=== PATIENT | female | born 1995 | race Caucasian/White ===

== ENCOUNTER 2016-09-12 00:25 | Emergency (ER) | payer SELFPAY ==
[~2016-09-12] VITALS: Ht 154.9 cm; Wt 47.5 kg
[2016-09-12 00:30] VITALS: Ht 154.9 cm; Wt 47.5 kg
== END 2016-09-12 01:45 | disposition left against medical advice (07) ==
LOC: FTE 00:25
DX: Z53.21 Procedure and treatment not carried out due to patient leaving prior to being seen by health care provider (principal)

== ENCOUNTER 2017-01-26 09:34 | Inpatient (IN) | payer OTHER ==
[~2017-01-26] VITALS: Ht 154.9 cm; Wt 58.8 kg
[2017-01-26 09:47] VITALS: Ht 154.9 cm; Wt 58.8 kg
[2017-01-26] MEDS ORDERED: FER325 PO (09:47)
[2017-01-26 09:48] VITALS: BP 86/53; PULSE 101; RESP 18
[2017-01-26] MEDS ORDERED: GUAIFENESIN/DM 5ML CUP PO ONE (10:00)
[2017-01-26 10:27] LABS: BASOPHILS % 0.5 % (0.0-2.0); EOSINOPHILS # 0.1 10^3/ul (0.0-0.5); EOSINOPHILS % 1.1 % (0.0-7.0); HEMATOCRIT 30.9 % (37.0-47.0); HEMOGLOBIN 10.5 g/dl (12.0-16.0); LYMPHOCYTES # 1.7 10^3/ul (0.8-2.9); MEAN CORPUSCULAR HEMOGLOBIN 31.3 pg (29.0-33.0); MEAN CORPUSCULAR VOLUME 92.2 fl (82.0-101.0); MEAN PLATELET VOLUME 10.1 fl (7.4-10.4); MONOCYTE # 0.6 10^3/ul (0.3-0.9); MONOCYTES % 7.7 % (0.0-11.0); NEUTROPHIL # 5.1 10^3/ul (1.6-7.5); NEUTROPHILS % 67.3 % (39.0-77.0); PLATELET COUNT 238 10^3/UL (140-415); RED BLOOD COUNT 3.35 10^6/ul (4.20-5.40); RED CELL DISTRIBUTION WIDTH 12.4 % (11.5-14.5); WHITE BLOOD COUNT 7.6 10^3/ul (4.8-10.8)
[2017-01-26] MEDS ORDERED: LACTATED RINGER'S 1,000 ML IV ONE (10:30)
--- NOTE | 2017-01-26 10:42 | RADRPT ---
PROCEDURE: US OB AND ULTRASOUND CERVIX. CLINICAL INDICATION: Size and dates , labor TECHNIQUE: Multiple sonographic images of the pelvis and gravid uterus were obtained. The images were reviewed on a PACS workstation. Transvaginal images of the cervix were also obtained. COMPARISON: No prior studies are available for comparison. FINDINGS: The cervix has a length of 4.5 cm. There is a single viable intrauterine gestation. Cardiac activity is present with 134 beats per min mariama. There is a vertex presentation. The placenta is anterior. There is no evidence for an abruption or placenta previa. Measurements were made in order to determine age. The results are as follows: BPD =7.7 cm HC =28.9 cm AC =27.9 cm FL =6.2 cm Estimated gestational age of approximately 31 weeks and 5 days based on ultrasound measurements. Clinical age: 32 weeks and 6 days. The estimated date of delivery is 03/25/17, based on ultrasound measurements. The EFW = 1849 g, 14.8%, based on LMP age. RPTAT: AA IMPRESSION: Single viable intrauterine gestation of approximately 31 weeks and 5 days based on ultrasound measu rements. .Leo Jennings MD, Date Time Electronically viewed and signed by .Leo Jennings MD, MD on 01/26/2017 10:42 .S/
[2017-01-26 10:52] LABS: UR BILIRUBIN (Dip) NEGATIVE (NEGATIVE); UR CLARITY SLIGHTLY CLOUDY (CLEAR); UR COLOR YELLOW (YELLOW); UR GLUCOSE (Dip) NEGATIVE (NEGATIVE); UR KETONES (Dip) NEGATIVE (NEGATIVE); UR TOTAL PROTEIN (Dip) NEGATIVE (NEGATIVE)
[2017-01-26 10:53] LABS: UR BLOOD (Dip) NEGATIVE (NEGATIVE); UR NITRITE (Dip) NEGATIVE (NEGATIVE); UR UROBILINOGEN (Dip) NEGATIVE (NEGATIVE)
[2017-01-26 10:54] LABS: ADD UMIC YES; UR LEUKOCYTE ESTERASE (Dip) 3+ Leu/ul (NEGATIVE)
[2017-01-26 10:55] LABS: UR BACTERIA FEW /HPF (NONE SEEN); UR SQUAMOUS EPITHELIAL CELL FEW /HPF (FEW)
[2017-01-26] MEDS ORDERED: CEFTRIAXONE 2 GM/50 ML (PMX) 50 ML IVPB SCH (11:30)
[2017-01-26] MEDS ORDERED: TERBUTALINE 1 MG/ML INJ SC ONE (11:30)
[2017-01-26] MEDS ORDERED: CEFTRIAXONE 2 GM/50 ML (PMX) 50 ML IVPB ONE (11:30)
[2017-01-26] MEDS: LACTATED RINGER'S 1,000 ML IV SCH ×2 (11:47→17:36)
--- NOTE | 2017-01-26 11:55 | TRIAGE ---
OB Triage Datetime Report Generated by CPN: 01/26/2017 11:55 Datetime: 01/26/2017 11:30 Stage of : OB Triage Maternal Assessment Level of Consciousness: Fully Conscious Labor Evaluation Frequency: 1-3 Monitor Mode: External Duration (sec)2399: 30-60 Quality: Mild Resting Tone [place]: Relaxed Heart Rate FHR Baseline Rate: 130 Monitor Mode: External US Variability: Moderate 6-25 bpm Accelerations: 15X15 Decelerations: None Category: Category I Pain Assessment Pain Scale: 8 Pain Presence: Constant Pain Type: Ache Pain Location: Back Pain Goal: 3 Pain Relief Measures: Comfort Measures Vaginal Exam Membrane Status: Intact Vaginal Bleeding: None Datetime: 01/26/2017 10:22 Stage of : OB Triage Maternal Assessment Level of Consciousness: Fully Conscious Labor Evaluation Frequency: 1-3 Monitor Mode: External Duration (sec)2399: 30-60 Quality: Mild Resting Tone [place]: Relaxed Heart Rate FHR Baseline Rate: 130 Monitor Mode: External US Variability: Moderate 6-25 bpm Accelerations: 15X15 Decelerations: None Category: Category I Pain Assessment Pain Scale: 8 Pain Presence: Constant Pain Type: Ache Pain Location: Back Pain Goal: 3 Pain Relief Measures: Comfort Measures Vaginal Exam Membrane Status: Intact Vaginal Bleeding: None Datetime: 01/26/2017 09:45 Assessment Type: Triage Maternal Assessment Level of Consciousness: Fully Conscious DTR's/Clonus: DTRs 2+; No Clonus Headache: Denies Blurred Vision: No Respiratory Effort: Unlabored; Regular Rhythm; Equal Expansion Breath Sounds, Left: Clear and Equal Breath Sounds, Right: Clear and Equal Nausea/Vomiting: Denies RUQ Epigastric Pain: Denies Lower Extremities Edema: None Degree: None Upper Extremities Edema: None Degree: None Facial Edema: None Fall Risk Assessment History of Falling: (0) No Secondary Diagnosis: (0) No Ambulatory Aid: (0) Bedrest/Nurse Assist IV Therapy: (0) No Gait: (0) Normal/Bedrest/Immobile Mental Status: (0) Oriented to Own Ability Fall Score: 0 Fall Risk Score Definition: No Risk: No action required Datetime: 01/26/2017 09:44 Time of Arrival: 01/26/2017 09:25 EGA: 32.6 Arrived By: Ambulatory Arrived From: Home Chief Complaint: PT HERE C/O COUGH AND RIGHT SIDED BACK PAIN Movement: Present Contractions: Denies/Absent Rupture of Membranes: Denies Vaginal Bleeding: None Vaginal Discharge: Denies Recent Sexual Intercouse: Yes Abdominal Trauma: Not Applicable Patient Complaints: Back Pain Time Provider Notified: 01/26/2017 09:40 Provider Notified: GAYLE Initial Plan: ROBITUSSIN, EFW, CVL, CBC, UA, LR Datetime: 01/26/2017 09:38 Monitor Mode: External Monitor Mode: External US
[2017-01-26] MEDS ORDERED: GUAIFENESIN/DM 5ML CUP PO PRN (12:00)
--- NOTE | 2017-01-26 16:10 | HP ---
Date/Time of Note Date/Time of Note DATE: 01/26/17 TIME: 16:04 OB - History Hx of Present Free Text/Dictation January 26, 2017 Chief Complaint: Right flank pain, cough worsening of right flank pain with cough, : 1 Para: 0 Spontaneous : 0 Therapeutic : 0 Care: Other (Records are not available. Patient had care with nonstaff OB attending) Other Concerns: 21-year-old with IUP at 32 weeks and 6 days with care with nonstaff OB attending, presented with complaint of cough for the last 2 weeks as well as right flank pain. Patient reports that had subjective fever that currently resolved. Denies any flame. Reports coughing makes her right flank pain worse. Denies any leaking of fluid, vaginal bleeding or decreased movement She denies any complications during her Course Past Family/Social History * Past Medical, Surgical, Family and Obstetric Histories reviewed from chart. OB Admission Exam Vital Signs Vital Signs Vital Signs Date Time Temp Pulse Resp B/P Pulse Ox O2 Delivery O2 Flow Rate FiO2 01/26/17 09:48 98.3 101 18 86/53 97 Room Air Physical Exam HEENT: WNL Heart: Rhythm Normal Lungs: Clear Abdomen: WNL (CVA tenderness in the right side noted) Extremities: Normal Cervical Dilatation: other (Cervical length more than 3 cm. Pelvic exam deferred.) Membranes: Intact Heart Rate: 120's Accelerations: Accelerations Present Decelerations: No Decelerations Contractions on Admission: < 5 Minutes Apart (Irritability with contractions every 4-6 minutes noted when presented spaced out with hydration, and a dose of terbutaline) Intensity: Mild Last 72 hours Lab Results CBC & BMP 01/26/17 09:55 OB Assessment/Plan Other Assessment: IUP at 32 weeks and 6 days Right flank pain,episode of subjective fever, urine analysis consistent with UTI. Clinical picture consistent with pyelonephritis False labor contraction due to UTI Cervix closed and long and ultrasound Irritability contraction improved with hydration Patient will be admitted for IV antibiotics A dose of Rocephin was a started in triage Plan of care discussed with the patient continue IV antibiotics. For 24-48 hours until clinical improvement then will be continued on p.o. antibiotics to complete a course of 2 weeks and then should be on prophylactic treatment for the rest of the Patient was admitted to antepartum service Continue IV fluids Urine was sent for culture and sensitivity Cough likely related to recent episode of cold Lung exam benign and clear Robitussin 3 times daily as needed AMARIS ARAUJO MD Jan 26, 2017 16:10
[2017-01-27] MEDS: SOD CHLORIDE 0.9% 1,000 ML IV SCH ×2 (00:45→09:13)
[2017-01-27] MEDS ORDERED: CEFTRIAXONE 2 GM/50 ML (PMX) 50 ML IVPB SCH (12:00)
--- NOTE | 2017-01-27 15:12 | DS ---
Date/Time of Note Date/Time of Note DATE: 01/27/17 TIME: 15:05 Discharge Summary Admission/Discharge Info Admit Date/Time January 27, 2017 Hospital visit and discharge summary. This patient is a primigravida at about 23 weeks today who was admitted through the emergency room 2 days of with complaint of cough for the past 2 weeks as well as a right flank pain. She says she had some elevated temperature which currently was resolved She was admitted with a diagnosis of urinary tract infection and was placed on Rocephin 2 g to be given every 24 hours. She received 2 doses of Rocephin. Current Medications Medications (Trade) Dose Ordered Sig/Kaci Route PRN Reason Start Time Stop Time Status Last Admin Dose Admin Guaifenesin/ Dextromethorphan 10 ml 10 ml ONCE ONCE PO 01/26/17 10:00 01/26/17 10:40 DC 01/26/17 10:59 Lactated Ringer's (Lr) 1,000 ml @ 1,000 mls/hr Q1H ONCE IV 01/26/17 10:30 01/26/17 11:27 DC 01/26/17 11:00 Terbutaline Sulfate 0.25 mg 0.25 mg ONCE ONCE SC 01/26/17 11:30 01/26/17 11:31 DC 01/26/17 11:47 Ceftriaxone Sodium 50 ml @ 100 mls/hr ONCE ONCE IVPB 01/26/17 11:30 01/26/17 11:30 DC Ceftriaxone Sodium 50 ml @ 100 mls/hr DAILY IVPB 01/26/17 11:30 01/27/17 09:21 DC 01/26/17 12:40 Lactated Ringer's (Lr) 1,000 ml @ 125 mls/hr Q8H IV 01/26/17 11:22 01/27/17 01:00 DC 01/26/17 17:36 Guaifenesin/ Dextromethorphan 10 ml 10 ml TID PRN PO COUGH 01/26/17 12:00 01/27/17 00:10 Sodium Chloride 1,000 ml @ 125 mls/hr Q8H IV 01/27/17 00:30 01/27/17 09:13 Ceftriaxone Sodium (Rocephin) 50 ml @ 100 mls/hr WITH LUNCH IVPB 01/27/17 12:00 01/27/17 13:05 Today she is doing fairly well, she is afebrile. Abdomen is soft heart tone is normal with good variability and acceleration no deceleration Not much of a flank tenderness With these improvement a prescription given for Macrobid 100 mg to be taken 3 times a day as a continuation of antibiotic treatment. She will be discharged home to be followed in the clinic. And to have a urine culture in 2 weeks. Discharge Date/Time Hospital Course Treatment for urinary tract infection At 33 weeks gestation Home Meds Reported Medications Ferrous Sulfate* (Ferrous Sulfate*) 325 Mg Tabec, 325 MG PO DAILY, TAB 01/26/17 Primary Care Provider Not On Staff Doctor BRYSON AMARO MD Jan 27, 2017 15:12
== END 2017-01-27 17:00 | disposition home or self-care (01) | DRG 781 ==
LOC: OBT 09:34 → L-D 09:37 → OBG 11:30 → OBT 11:56
PROVIDERS: ADMIT Obstetrics & Gynecology Obstetrics; ATTEND Obstetrics & Gynecology Obstetrics
DX: O23.43 Unspecified infection of urinary tract in pregnancy, third trimester (principal); Z3A.33 33 weeks gestation of pregnancy
CPT/HCPCS: 76815; 76817; 81001; 85025; 87086; 96360; 96372; G0463; J3105; J7030; J7120

== ENCOUNTER 2017-03-16 22:16 | Inpatient (IN) | payer OTHER ==
[~2017-03-16] VITALS: Ht 154.9 cm; Wt 61.1 kg
[~2017-03-16 22:16] MED LIST: FER325 PO
[2017-03-16] MEDS ORDERED: CALC600T5 PO (22:31)
[2017-03-16] MEDS ORDERED: PREN1TAB79 PO (22:31)
[2017-03-16 22:32] VITALS: Ht 154.9 cm; Wt 61.1 kg
[2017-03-16 22:33] VITALS: BP 145/77; PULSE 83; RESP 20
[2017-03-17] MEDS ORDERED: MISOPROSTOL 200 MCG TAB PR PRN ×2 (00:30→21:30)
[2017-03-17] MEDS ORDERED: CARBOPROST 250 MCG INJ IM PRN ×2 (00:30→21:30)
[2017-03-17] MEDS ORDERED: IBUPROFEN 600 MG TAB PO PRN (00:30)
[2017-03-17] MEDS ORDERED: LACTATED RINGER'S 1,000 ML IV PRN (00:30)
[2017-03-17] MEDS ORDERED: METHYLERGONOVINE 0.2 MG INJ IM PRN ×2 (00:30→21:30)
[2017-03-17] MEDS ORDERED: OXYTOCIN 30 UNITS/LR 500 ML IV SCH ×4 (00:30→21:18)
[2017-03-17] MEDS ORDERED: OXYTOCIN 30 UNITS/LR 500 ML IV PRN ×2 (00:30→21:30)
[2017-03-17] MEDS ORDERED: LIDOCAINE 1% (MPF) 30 ML INJ INJ PRN (00:30)
[2017-03-17] MEDS ORDERED: BUTORPHANOL 2 MG INJ IV PRN (00:30)
--- NOTE | 2017-03-17 01:11 | HP ---
Date/Time of Note Date/Time of Note DATE: 03/17/17 TIME: 01:08 OB - History Hx of Present Free Text/Dictation 03/17/2017 Estimated Due Date: Mar 17, 2017 : 1 Para: 0 Spontaneous : 0 Therapeutic : 0 Care: Good Care Ultrasounds: Normal mid trimester US Obstetrical Complications: None Other Concerns: 21-year-old with IUP at 40 weeks with care at outside clinic presented with complaint of contractions and vaginal bleeding. She reports contractions every 5 minutes. She was examined and was 3 cm 80% -2. GBS negative. Patient has CATHIE March 09, 2017 She was told that she had a narrow suprapubic bone and there is a possibility of section. Estimated weight 7 pound and 12 Past Family/Social History * Past Medical, Surgical, Family and Obstetric Histories reviewed from chart. OB Admission Exam Vital Signs Vital Signs Vital Signs Date Time Temp Pulse Resp B/P Pulse Ox O2 Delivery O2 Flow Rate FiO2 03/16/17 22:33 98.1 83 20 145/77 Room Air Physical Exam HEENT: WNL Abdomen: WNL Extremities: Normal Reflexes: Normal Cervical Dilatation: 3cm Effacement: 75% Station: -2 Membranes: Intact Amniotic Fluid: Clear Heart Rate: 120's Accelerations: Accelerations Present Decelerations: No Decelerations Varibility: Moderate Contractions on Admission: < 5 Minutes Apart Intensity: Moderate OB Assessment/Plan Reason for admission: active labor Other Assessment: IUP at 40 weeks Active labor GBS negative Patient desires labor augmentation Also has a narrow suprapubic arc and possibility of section. Discussed regarding trial of labor. Will follow-up labor curve heart tracing category 1 AMARIS ARAUJO MD Mar 17, 2017 01:11
[2017-03-17] MEDS: LACTATED RINGER'S 1,000 ML IV SCH ×3 (02:23→10:32)
[2017-03-17 02:49] LABS: BASOPHILS % 0.4 % (0.0-2.0); EOSINOPHILS # 0.1 10^3/ul (0.0-0.5); EOSINOPHILS % 0.7 % (0.0-7.0); HEMATOCRIT 31.7 % (37.0-47.0); HEMOGLOBIN 10.6 g/dl (12.0-16.0); LYMPHOCYTES # 2.6 10^3/ul (0.8-2.9); LYMPHOCYTES % 36.3 % (15.0-51.0); MEAN CORPUSCULAR HEMOGLOBIN 29.7 pg (29.0-33.0); MEAN CORPUSCULAR HGB CONC 33.4 g/dl (32.0-37.0); MEAN CORPUSCULAR VOLUME 88.8 fl (82.0-101.0); MEAN PLATELET VOLUME 11.5 fl (7.4-10.4); MONOCYTE # 0.6 10^3/ul (0.3-0.9); MONOCYTES % 8.9 % (0.0-11.0); NEUTROPHIL # 3.8 10^3/ul (1.6-7.5); NEUTROPHILS % 53.4 % (39.0-77.0); PLATELET COUNT 157 10^3/UL (140-415); RED BLOOD COUNT 3.57 10^6/ul (4.20-5.40); WHITE BLOOD COUNT 7.2 10^3/ul (4.8-10.8)
[2017-03-17 02:56] LABS: INR 0.8; PROTIME 11.1 Sec (12.2-14.2); PT RATIO 0.9
[2017-03-17 02:57] LABS: PARTIAL THROMBOPLASTIN TIME 28.3 Sec (25.0-35.0)
--- NOTE | 2017-03-17 04:31 | TRIAGE ---
OB Triage Datetime Report Generated by CPN: 03/17/2017 04:30 Datetime: 03/17/2017 04:19 Temperature Route: Oral Pain Assessment Pain Scale: 6 Pain Presence: Intermittent Pain Type: Contraction Pain Location: Abdomen; Back Pain Relief Measures: Comfort Measures Datetime: 03/17/2017 03:00 Labor Evaluation Frequency: 2-4 Monitor Mode: External Duration (sec)2399: 40-60 Quality: Mild Pattern: Normal: <= 5 Contractions in 10 Minutes Resting Tone [place]: Relaxed Interventions: Side to Side Heart Rate FHR Baseline Rate: 125 Monitor Mode: External US FHR Baseline Changes: No Baseline Change Variability: Moderate 6-25 bpm Accelerations: 15X15 Decelerations: None Category: Category I Datetime: 03/17/2017 02:30 Labor Evaluation Frequency: 4-6 Monitor Mode: External Duration (sec)2399: 60-90 Quality: Mild Pattern: Normal: <= 5 Contractions in 10 Minutes Resting Tone [place]: Relaxed Interventions: Side to Side; Sterile Vaginal Exam; Provider Notified Heart Rate FHR Baseline Rate: 120 Monitor Mode: External US FHR Baseline Changes: No Baseline Change Variability: Moderate 6-25 bpm Accelerations: 15X15 Decelerations: Prolonged Category: Category II Comments: refer to time 0202 for prolonged deceleration Datetime: 03/17/2017 02:22 Temperature Route: Oral Pain Assessment Pain Scale: 4 Pain Presence: Intermittent Pain Type: Contraction Pain Location: Abdomen; Back Pain Goal: 5 Pain Relief Measures: Comfort Measures Datetime: 03/17/2017 02:08 Stage of : Labor Vaginal Exam Dilatation (cms): 3.0 Effacement (%): 80 Station: -2 Exam By: MG Membrane Status: Intact Datetime: 03/17/2017 02:02 Interventions: Side to Side Comments: Prolonged deceleration lasting for 4 minutes with vilma at 50. Datetime: 03/17/2017 01:49 Resting Tone [place]: Relaxed Datetime: 03/17/2017 01:45 Labor Evaluation Frequency: 5-5.5 Monitor Mode: External Duration (sec)2399: 100-120 Quality: Mild Pattern: Normal: <= 5 Contractions in 10 Minutes Resting Tone [place]: Relaxed Heart Rate FHR Baseline Rate: 120 Monitor Mode: External US FHR Baseline Changes: No Baseline Change Variability: Moderate 6-25 bpm Accelerations: 10X10 Decelerations: None Category: Category I Comments: Periods of loss of FHR contact d/t pt self-repositioning Datetime: 03/17/2017 01:41 Arrived By: Stretcher Datetime: 03/17/2017 01:30 Assessment Type: Admission Assessment Maternal Assessment Level of Consciousness: Fully Conscious DTR's/Clonus: DTRs 2+; No Clonus Headache: Denies Blurred Vision: No Respiratory Effort: Unlabored; Regular Rhythm; Equal Expansion Breath Sounds, Left: Clear and Equal Breath Sounds, Right: Clear and Equal Nausea/Vomiting: Denies RUQ Epigastric Pain: Denies Lower Extremities Edema: None Degree: None Upper Extremities Edema: None Degree: None Facial Edema: None Fall Risk Assessment History of Falling: (0) No Secondary Diagnosis: (0) No Ambulatory Aid: (0) Bedrest/Nurse Assist IV Therapy: (0) No Gait: (0) Normal/Bedrest/Immobile Mental Status: (0) Oriented to Own Ability Fall Score: 0 Fall Risk Score Definition: No Risk: No action required Datetime: 03/17/2017 01:15 Stage of : Labor Datetime: 03/17/2017 01:00 Stage of : OB Triage Labor Evaluation Frequency: 3-5.5 Monitor Mode: External Duration (sec)2399: 90-180 Quality: Moderate Pattern: Normal: <= 5 Contractions in 10 Minutes Resting Tone [place]: Relaxed Heart Rate FHR Baseline Rate: 120 Monitor Mode: External US FHR Baseline Changes: No Baseline Change Variability: Moderate 6-25 bpm Accelerations: 15X15 Decelerations: Early; Late Category: Category II Datetime: 03/17/2017 00:00 Stage of : OB Triage Labor Evaluation Frequency: 2.5-5 Monitor Mode: External Duration (sec)2399: 90-180 Quality: Moderate Pattern: Normal: <= 5 Contractions in 10 Minutes Resting Tone [place]: Relaxed Heart Rate FHR Baseline Rate: 120 Monitor Mode: External US Variability: Moderate 6-25 bpm Accelerations: 15X15 Decelerations: None Category: Category I Datetime: 03/16/2017 23:00 Stage of : OB Triage Labor Evaluation Frequency: 3-5.5 Monitor Mode: External Duration (sec)2399: 70-180 Quality: Moderate Pattern: Normal: <= 5 Contractions in 10 Minutes Resting Tone [place]: Relaxed Heart Rate FHR Baseline Rate: 125 Monitor Mode: External US Variability: Moderate 6-25 bpm Accelerations: 15X15 Decelerations: None Category: Category I Datetime: 03/16/2017 22:34 Stage of : OB Triage Datetime: 03/16/2017 22:23 Vaginal Exam Dilatation (cms): 3.0 Effacement (%): 80 Station: -2 Exam By: WILI Schofield Membrane Status: Intact Vaginal Bleeding: Small Nitrazine: Negative Cervix, Consistency: Moderate Cervix, Position: Posterior Datetime: 03/16/2017 22:14 Stage of : OB Triage Assessment Type: Triage Maternal Assessment Level of Consciousness: Fully Conscious DTR's/Clonus: DTRs 2+; No Clonus Headache: Denies Blurred Vision: No Respiratory Effort: Unlabored; Regular Rhythm; Equal Expansion Breath Sounds, Left: Clear and Equal Breath Sounds, Right: Clear and Equal Nausea/Vomiting: Denies RUQ Epigastric Pain: Denies Lower Extremities Edema: None Degree: None Upper Extremities Edema: None Degree: None Facial Edema: None Temperature Route: Oral Fall Risk Assessment History of Falling: (0) No Secondary Diagnosis: (0) No Ambulatory Aid: (0) Bedrest/Nurse Assist IV Therapy: (0) No Gait: (0) Normal/Bedrest/Immobile Mental Status: (0) Oriented to Own Ability Fall Score: 0 Fall Risk Score Definition: No Risk: No action required Pain Assessment Pain Scale: 6 Pain Presence: Intermittent Pain Type: Cramping; Contraction Pain Location: Abdomen; Back Pain Relief Measures: Comfort Measures Datetime: 03/16/2017 22:12 Stage of : OB Triage Monitor Mode: External Contraction Comments: [place] applied Heart Rate FHR Baseline Rate: 130 Monitor Mode: External US Comments: EFM applied Datetime: 03/16/2017 22:11 Time of Arrival: 03/16/2017 21:59 EGA: 39.6 Arrived By: Wheelchair Arrived From: Home Chief Complaint: Bleeding with uc's q5mins Movement: Present Contractions: Regular Time Contractions Began: 03/16/2017 19:00 Contractions: q5mins Rupture of Membranes: Unsure Vaginal Bleeding: Moderate Vaginal Discharge: Present Recent Sexual Intercouse: Denies Abdominal Trauma: Not Applicable Patient Complaints: Contractions; Cramping; Back Pain; Other Time Provider Notified: 03/16/2017 22:34 Provider Notified: Initial Plan: EFM x2 Datetime: 01/27/2017 16:35 Labor Evaluation Frequency: 0 Monitor Mode: External Pattern: Normal: <= 5 Contractions in 10 Minutes Resting Tone [place]: Relaxed Heart Rate FHR Baseline Rate: 135 Monitor Mode: External US FHR Baseline Changes: No Baseline Change Variability: Moderate 6-25 bpm Accelerations: 15X15 Decelerations: None Category: Category I Datetime: 01/27/2017 16:00 Labor Evaluation Frequency: IRRIT Monitor Mode: External Duration (sec)2399: 30 Pattern: Normal: <= 5 Contractions in 10 Minutes Resting Tone [place]: Relaxed Contraction Comments: PT DENIES FEELING UCs Heart Rate FHR Baseline Rate: 140 Monitor Mode: External US FHR Baseline Changes: No Baseline Change Variability: Moderate 6-25 bpm Accelerations: 15X15 Decelerations: None Category: Category I Datetime: 01/27/2017 15:00 Labor Evaluation Frequency: 0 Monitor Mode: External Pattern: Normal: <= 5 Contractions in 10 Minutes Resting Tone [place]: Relaxed Heart Rate FHR Baseline Rate: 130 Monitor Mode: External US FHR Baseline Changes: No Baseline Change Variability: Moderate 6-25 bpm Accelerations: 15X15 Decelerations: None Category: Category I Datetime: 01/27/2017 14:00 Labor Evaluation Frequency: X2/HR Monitor Mode: External Duration (sec)2399: 40 Quality: Mild Pattern: Normal: <= 5 Contractions in 10 Minutes Resting Tone [place]: Relaxed Heart Rate FHR Baseline Rate: 130 Monitor Mode: External US FHR Baseline Changes: No Baseline Change Variability: Moderate 6-25 bpm Accelerations: 15X15 Decelerations: None Category: Category I Datetime: 01/27/2017 13:00 Labor Evaluation Frequency: X2/HR +IRRIT Monitor Mode: External Duration (sec)2399: 40 TO 50 Quality: Mild Pattern: Normal: <= 5 Contractions in 10 Minutes Resting Tone [place]: Relaxed Contraction Comments: PT DENIES UCs Heart Rate FHR Baseline Rate: 130 Monitor Mode: External US FHR Baseline Changes: No Baseline Change Variability: Moderate 6-25 bpm Accelerations: 15X15 Decelerations: None Category: Category I Datetime: 01/27/2017 12:59 Temperature Route: Oral Labor Evaluation Frequency: X3/HR +IRRIT Monitor Mode: External Duration (sec)2399: 40 TO 50 Quality: Mild Pattern: Normal: <= 5 Contractions in 10 Minutes Resting Tone [place]: Relaxed Heart Rate FHR Baseline Rate: 130 Monitor Mode: External US FHR Baseline Changes: No Baseline Change Variability: Moderate 6-25 bpm Accelerations: 15X15 Decelerations: None Category: Category I Datetime: 01/27/2017 12:00 Labor Evaluation Frequency: X3/HR +IRRIT Monitor Mode: External Quality: Mild Pattern: Normal: <= 5 Contractions in 10 Minutes Resting Tone [place]: Relaxed Heart Rate FHR Baseline Rate: 130 Monitor Mode: External US FHR Baseline Changes: No Baseline Change Variability: Moderate 6-25 bpm Accelerations: 15X15 Decelerations: None Category: Category I Datetime: 01/27/2017 11:00 Labor Evaluation Frequency: X5/HR +IRRIT Monitor Mode: External Duration (sec)2399: 50 TO 60 Quality: Mild Pattern: Normal: <= 5 Contractions in 10 Minutes Resting Tone [place]: Relaxed Heart Rate FHR Baseline Rate: 130 Monitor Mode: External US FHR Baseline Changes: No Baseline Change Variability: Moderate 6-25 bpm Accelerations: 15X15 Decelerations: None Category: Category I Datetime: 01/27/2017 10:00 Labor Evaluation Frequency: 0 Monitor Mode: External Quality: Mild Pattern: Normal: <= 5 Contractions in 10 Minutes Heart Rate FHR Baseline Rate: 130 Monitor Mode: External US FHR Baseline Changes: No Baseline Change Variability: Moderate 6-25 bpm Accelerations: 15X15 Decelerations: None Category: Category I Datetime: 01/27/2017 09:00 Labor Evaluation Frequency: X5/HR +IRRIT Monitor Mode: External Duration (sec)2399: 50 TO 60 Quality: Mild Pattern: Normal: <= 5 Contractions in 10 Minutes Resting Tone [place]: Relaxed Contraction Comments: PT DENIES FEELING UCs Datetime: 01/27/2017 08:00 Maternal Assessment Level of Consciousness: Fully Conscious DTR's/Clonus: DTRs 2+; No Clonus Headache: Denies Breath Sounds, Left: Clear and Equal Breath Sounds, Right: Clear and Equal Nausea/Vomiting: Denies RUQ Epigastric Pain: Denies Temperature Route: Oral Labor Evaluation Frequency: X7 Monitor Mode: External Duration (sec)2399: 60 TO 70 Quality: Mild Pattern: Normal: <= 5 Contractions in 10 Minutes Resting Tone [place]: Relaxed Contraction Comments: PT DENIES FEELING UCs Datetime: 01/27/2017 07:56 Assessment Type: Ongoing Assessment Blurred Vision: No Respiratory Effort: Unlabored; Regular Rhythm; Equal Expansion Lower Extremities Edema: None Degree: None Upper Extremities Edema: None Degree: None Facial Edema: None Fall Risk Assessment History of Falling: (0) No Secondary Diagnosis: (0) No Ambulatory Aid: (0) Bedrest/Nurse Assist Gait: (0) Normal/Bedrest/Immobile Mental Status: (0) Oriented to Own Ability Datetime: 01/27/2017 05:50 Labor Evaluation Frequency: x2 Monitor Mode: External Duration (sec)2399: 40-50 Quality: Mild Resting Tone [place]: Relaxed Heart Rate FHR Baseline Rate: 140 Monitor Mode: External US Variability: Moderate 6-25 bpm Accelerations: 15X15 Decelerations: None Category: Category I Pain Presence: None/Denies Pain Type: N/A Datetime: 01/27/2017 04:50 Maternal Assessment Level of Consciousness: Fully Conscious Headache: Denies Blurred Vision: No Nausea/Vomiting: Denies RUQ Epigastric Pain: Denies Facial Edema: None Labor Evaluation Frequency: x4 Monitor Mode: External Duration (sec)2399: 40-60 Quality: Mild Resting Tone [place]: Relaxed Heart Rate FHR Baseline Rate: 130 Monitor Mode: External US Variability: Moderate 6-25 bpm Accelerations: 15X15 Decelerations: None Category: Category I Pain Presence: None/Denies Datetime: 01/27/2017 03:50 Labor Evaluation Frequency: OCCASIONAL Monitor Mode: External Duration (sec)2399: 40-50 Quality: Mild Resting Tone [place]: Relaxed Heart Rate FHR Baseline Rate: 135 Monitor Mode: External US Variability: Moderate 6-25 bpm Accelerations: 15X15 Decelerations: None Category: Category I Datetime: 01/27/2017 02:50 Labor Evaluation Frequency: X2 Monitor Mode: Internal Duration (sec)2399: 40-50 Quality: Mild Resting Tone [place]: Relaxed Heart Rate FHR Baseline Rate: 140 Monitor Mode: External US Variability: Moderate 6-25 bpm Accelerations: 15X15 Decelerations: None Category: Category I Pain Presence: None/Denies Datetime: 01/27/2017 01:50 Labor Evaluation Frequency: 0 Monitor Mode: External Quality: Mild Resting Tone [place]: Relaxed Contraction Comments: SOME IRRITABILITY NOTED. Heart Rate FHR Baseline Rate: 135 Monitor Mode: External US Variability: Moderate 6-25 bpm Accelerations: 15X15 Decelerations: None Category: Category I Pain Presence: None/Denies Datetime: 01/27/2017 00:50 Labor Evaluation Frequency: X2 Monitor Mode: External Duration (sec)2399: 40-50 Quality: Mild Resting Tone [place]: Relaxed Heart Rate FHR Baseline Rate: 135 Monitor Mode: External US Variability: Moderate 6-25 bpm Accelerations: 15X15 Decelerations: None Category: Category I Pain Presence: None/Denies Pain Type: N/A Datetime: 01/26/2017 23:50 Labor Evaluation Frequency: x3 Monitor Mode: External Duration (sec)2399: 50-60 Quality: Mild Resting Tone [place]: Relaxed Heart Rate FHR Baseline Rate: 135 Monitor Mode: External US Variability: Moderate 6-25 bpm Accelerations: 15X15 Decelerations: None Category: Category I Pain Presence: None/Denies Datetime: 01/26/2017 22:50 Labor Evaluation Frequency: occasional Monitor Mode: External Duration (sec)2399: 40-50 Quality: Mild Resting Tone [place]: Relaxed Heart Rate FHR Baseline Rate: 140 Monitor Mode: External US Variability: Moderate 6-25 bpm Accelerations: 15X15 Decelerations: None Category: Category I Pain Presence: None/Denies Pain Type: N/A Datetime: 01/26/2017 21:50 Labor Evaluation Frequency: irregular Monitor Mode: External Duration (sec)2399: 40-50 Quality: Mild Resting Tone [place]: Relaxed Heart Rate FHR Baseline Rate: 135 Monitor Mode: External US Variability: Moderate 6-25 bpm Accelerations: 15X15 Decelerations: None Category: Category I Pain Presence: None/Denies Datetime: 01/26/2017 20:50 Labor Evaluation Frequency: IRREGULAR Monitor Mode: External Duration (sec)2399: 40-60 Quality: Mild Resting Tone [place]: Relaxed Heart Rate FHR Baseline Rate: 140 Monitor Mode: External US Variability: Moderate 6-25 bpm Accelerations: 15X15 Decelerations: None Category: Category I Pain Presence: None/Denies Pain Type: N/A Datetime: 01/26/2017 19:50 Labor Evaluation Frequency: IRREGULAR Monitor Mode: External Duration (sec)2399: 40-50 Quality: Mild Resting Tone [place]: Relaxed Contraction Comments: ABDOMEN SOFT TO PALPATE. Heart Rate FHR Baseline Rate: 140 Monitor Mode: External US Variability: Moderate 6-25 bpm Accelerations: 15X15 Decelerations: None Category: Category I Pain Presence: None/Denies Datetime: 01/26/2017 19:42 Stage of : Antepartum Assessment Type: Ongoing Assessment Maternal Assessment Level of Consciousness: Fully Conscious DTR's/Clonus: DTRs 2+; No Clonus Headache: Denies Blurred Vision: No Respiratory Effort: Unlabored; Regular Rhythm; Equal Expansion Breath Sounds, Left: Clear and Equal Breath Sounds, Right: Clear and Equal Nausea/Vomiting: Denies RUQ Epigastric Pain: Denies Lower Extremities Edema: None Degree: None Upper Extremities Edema: None Degree: None Facial Edema: None Temperature Route: Oral Fall Risk Assessment History of Falling: (0) No Secondary Diagnosis: (0) No Ambulatory Aid: (0) Bedrest/Nurse Assist IV Therapy: (0) No Gait: (0) Normal/Bedrest/Immobile Mental Status: (0) Oriented to Own Ability Fall Score: 0 Fall Risk Score Definition: No Risk: No action required Pain Presence: None/Denies Datetime: 01/26/2017 18:51 Labor Evaluation Frequency: OCCASIONAL Monitor Mode: External Duration (sec)2399: 40-60 Quality: Mild Pattern: Normal: <= 5 Contractions in 10 Minutes Resting Tone [place]: Relaxed Heart Rate FHR Baseline Rate: 135 Monitor Mode: External US FHR Baseline Changes: No Baseline Change Variability: Moderate 6-25 bpm Accelerations: 15X15 Decelerations: None Category: Category I Datetime: 01/26/2017 18:00 Labor Evaluation Frequency: IRREGULAR Monitor Mode: External Duration (sec)2399: 40-50 Pattern: Normal: <= 5 Contractions in 10 Minutes Resting Tone [place]: Relaxed Heart Rate FHR Baseline Rate: 135 Monitor Mode: External US FHR Baseline Changes: No Baseline Change Variability: Moderate 6-25 bpm Accelerations: 15X15 Decelerations: None Category: Category I Datetime: 01/26/2017 17:00 Labor Evaluation Frequency: IRREGULAR Monitor Mode: External Duration (sec)2399: 40-50 Pattern: Normal: <= 5 Contractions in 10 Minutes Resting Tone [place]: Relaxed Heart Rate FHR Baseline Rate: 135 Monitor Mode: External US FHR Baseline Changes: No Baseline Change Variability: Moderate 6-25 bpm Accelerations: 15X15 Decelerations: None Category: Category I Datetime: 01/26/2017 16:00 Labor Evaluation Frequency: 3-5 Monitor Mode: External Duration (sec)2399: 60-100 Quality: Mild Pattern: Normal: <= 5 Contractions in 10 Minutes Resting Tone [place]: Relaxed Heart Rate FHR Baseline Rate: 135 Monitor Mode: External US FHR Baseline Changes: No Baseline Change Variability: Moderate 6-25 bpm Accelerations: 15X15 Decelerations: None Category: Category I Datetime: 01/26/2017 15:30 Labor Evaluation Frequency: OCCASIONAL Monitor Mode: External Duration (sec)2399: 40-90 Quality: Mild Pattern: Normal: <= 5 Contractions in 10 Minutes Resting Tone [place]: Relaxed Heart Rate FHR Baseline Rate: 135 Monitor Mode: External US FHR Baseline Changes: No Baseline Change Variability: Moderate 6-25 bpm Accelerations: 15X15 Decelerations: None Category: Category I Datetime: 01/26/2017 14:30 Labor Evaluation Frequency: 1-5 Monitor Mode: External Duration (sec)2399: 40-60 Quality: Mild Pattern: Normal: <= 5 Contractions in 10 Minutes Resting Tone [place]: Relaxed Heart Rate FHR Baseline Rate: 135 Monitor Mode: External US FHR Baseline Changes: No Baseline Change Variability: Moderate 6-25 bpm Accelerations: 15X15 Decelerations: None Category: Category I Datetime: 01/26/2017 13:30 Labor Evaluation Frequency: 1-3 Monitor Mode: External Duration (sec)2399: 60-90 Quality: Mild Pattern: Normal: <= 5 Contractions in 10 Minutes Resting Tone [place]: Relaxed Heart Rate FHR Baseline Rate: 160 Monitor Mode: External US FHR Baseline Changes: No Baseline Change Variability: Moderate 6-25 bpm Accelerations: 15X15 Decelerations: None Category: Category I Datetime: 01/26/2017 12:30 Labor Evaluation Frequency: NONE Monitor Mode: External Pattern: Normal: <= 5 Contractions in 10 Minutes Resting Tone [place]: Relaxed Heart Rate FHR Baseline Rate: 145 Monitor Mode: External US FHR Baseline Changes: No Baseline Change Variability: Moderate 6-25 bpm Accelerations: 15X15 Decelerations: None Category: Category I Datetime: 01/26/2017 12:20 Assessment Type: Admission Assessment Maternal Assessment Level of Consciousness: Fully Conscious DTR's/Clonus: DTRs 2+; No Clonus Headache: Denies Blurred Vision: No Respiratory Effort: Unlabored; Regular Rhythm; Equal Expansion Breath Sounds, Left: Clear and Equal Breath Sounds, Right: Clear and Equal Nausea/Vomiting: Denies RUQ Epigastric Pain: Denies Lower Extremities Edema: None Upper Extremities Edema: None Facial Edema: None Fall Risk Assessment History of Falling: (0) No Secondary Diagnosis: (0) No Ambulatory Aid: (0) Bedrest/Nurse Assist IV Therapy: (20) Yes Gait: (0) Normal/Bedrest/Immobile Mental Status: (0) Oriented to Own Ability Fall Score: 20 Fall Risk Score Definition: No Risk: No action required Datetime: 01/26/2017 12:06 Temperature Route: Oral Datetime: 01/26/2017 09:45 Fall Score: 0 Fall Risk Score Definition: No Risk: No action required Datetime: 01/26/2017 09:44 EGA: 32.6
[2017-03-17] MEDS ORDERED: FENTAnyl 2MCG/ML-ROPIV 0.2% 100 ML ONE (08:34)
[2017-03-17] MEDS ORDERED: KETOROLAC 30 MG INJ IV PRN (09:30)
[2017-03-17] MEDS ORDERED: NALOXONE (0.4 MG/ML) INJ IV PRN (09:30)
[2017-03-17] MEDS ORDERED: DIPHENHYDRAMINE 50 MG INJ IV PRN (09:30)
[2017-03-17] MEDS ORDERED: ZOLPIDEM 5 MG TAB PO PRN (09:30)
[2017-03-17] MEDS ORDERED: HYDROmorphONE 1 MG/ML SYG IV PRN ×2 (09:30)
[2017-03-17] MEDS ORDERED: ONDANSETRON 4 MG INJ IV PRN (09:30)
[2017-03-17] MEDS ORDERED: FENTAnyl 2MCG/ML-ROPIV 0.2% 100 ML BAG EPI SCH (09:30)
[2017-03-17] MEDS ORDERED: MINERAL OIL LIGHT 10 ML VIAL TOP ONE (14:30)
[2017-03-17 20:00] VITALS: BP 138/76; PULSE 71; RESP 20
[2017-03-17 20:15] VITALS: BP 123/74; PULSE 80; RESP 20
[2017-03-17 20:30] VITALS: BP 122/75; PULSE 76; RESP 20
--- NOTE | 2017-03-17 20:32 | LDN ---
Date/Time of Note Date/Time of Note DATE: 03/17/17 TIME: 20:28 Delivery Summary March 17, 2017 Spontaneous vaginal delivery note Assisted Vaginal Delivery: Vacuum Placenta Delivered: Manually Meconium: Thick Episiotomy: No Indication for episiotomy Second-degree perineal laceration repaired Perineal laceration: 2 Anesthesia type: Epidural Estimated blood loss: 350 Sponge & Needle done & correct: Yes All needle counts correct: Yes Any foreign bodies felt in the: No Problems: Infant Delivery Information Sex Infant Sex: male Apgars 1 Minute: 9 5 Minute: 9 Suctioning Nose & mouth suctioned at tara: Yes Delee suction performed: No Umbilical Cord Umbilical cord with: 3 Vessels Cord presentations: no nuchal cord Cord Blood was obtained: Yes Mother & Baby Disposition Disposition Mom & Baby to Maternity; Good: Yes Mom transferred to: Med/Surg BRYSON AMARO MD Mar 17, 2017 20:32
[2017-03-17 21:00] VITALS: BP 124/76; PULSE 76; RESP 18
[2017-03-17] MEDS: OXYTOCIN 30 UNITS/LR 500 ML IV SCH ×2 (21:18→23:43)
[2017-03-17 21:25] VITALS: BP 131/76; PULSE 83; RESP 19
[2017-03-17] MEDS ORDERED: DIBUCAINE 1% 30 GM OINT PR PRN (21:30)
[2017-03-17] MEDS ORDERED: SENNA/DOCUSATE NA (8.6MG/50MG) TAB PO PRN (21:30)
[2017-03-17] MEDS ORDERED: ACETAMINOPHEN 500 MG TAB PO PRN (21:30)
[2017-03-17] MEDS ORDERED: LANOLIN 7 GM TUBE TOP PRN (21:30)
[2017-03-17] MEDS ORDERED: BENZOCAINE 20% 56 ML SPRAY TOP PRN (21:30)
[2017-03-17] MEDS ORDERED: OXYCODONE/ASPIRIN (4.88/325) TAB PO PRN ×2 (21:30)
[2017-03-17] MEDS ORDERED: WITCH HAZEL/GLYCERIN PAD PR PRN (21:30)
[2017-03-17 22:20] VITALS: BP 122/74; PULSE 71; RESP 19
[2017-03-17] MEDS: IBUPROFEN 600 MG TAB PO PRN (23:12)
[2017-03-18] VITALS: BP 120/70; PULSE 67; RESP 18
[2017-03-18 04:00] VITALS: BP 110/59; PULSE 79; RESP 18
[2017-03-18] MEDS: IBUPROFEN 600 MG TAB PO PRN ×4 (05:42→23:32)
[2017-03-18 08:45] VITALS: BP 111/59; PULSE 87; RESP 18
[2017-03-18 09:48] LABS: ABNORMAL IP MESSAGE 1; HEMATOCRIT 18.9 % (37.0-47.0); MEAN CORPUSCULAR HEMOGLOBIN 28.9 pg (29.0-33.0); MEAN CORPUSCULAR HGB CONC 32.3 g/dl (32.0-37.0); MEAN CORPUSCULAR VOLUME 89.6 fl (82.0-101.0); MEAN PLATELET VOLUME 11.6 fl (7.4-10.4); RED BLOOD COUNT 2.11 10^6/ul (4.20-5.40); RED CELL DISTRIBUTION WIDTH 13.4 % (11.5-14.5); WHITE BLOOD COUNT 15.6 10^3/ul (4.8-10.8)
[2017-03-18 10:00] LABS: PLATELET COUNT 118 10^3/UL (140-415); POSITIVE DIFF @See below
[2017-03-18 10:02] LABS: HEMOGLOBIN 6.1 g/dl (12.0-16.0)
--- NOTE | 2017-03-18 12:07 | PN ---
Date/Time of Note Date/Time of Note DATE: 03/18/17 TIME: 12:05 OB Subjective Subjective Subjective Patient with bleeding, no heavy. Tolerating regular diet. +BMs. OB Objective Objective Objective Gen: NAD Abd: FF OB Assessment/Plan Other Assessment: PPD1 s/p Other plan: Routine care. Iron supplement. Anticipate discharge home tomorrow. JOSE GEE Mar 18, 2017 12:07
[2017-03-18] MEDS: FERROUS SULFATE (EC) 325 MG TAB PO SCH ×2 (13:07→21:05)
[2017-03-18 13:13] LABS: ANISOCYTOSIS 2+ (0-0); BASOPHILS % (M) 1 % (0-2); EOSINOPHILS % (M) 4 % (0-7); MICROCYTOSIS 1+ (0-0); MONOCYTES % (M) 4 % (0-11); POLYCHROMASIA 3+ (0-0); REACTIVE LYMPHOCYTES% (M) 1 % (0-0)
[2017-03-18 16:00] VITALS: BP 112/68; PULSE 75; RESP 18
[2017-03-18 19:45] VITALS: BP 121/69; PULSE 92; RESP 18
[2017-03-19 03:40] VITALS: BP 107/68; PULSE 97; RESP 19
[2017-03-19] MEDS: IBUPROFEN 600 MG TAB PO PRN (05:41)
[2017-03-19 08:00] VITALS: BP 105/56; PULSE 73; RESP 18
[2017-03-19 08:48] LABS: ABNORMAL IP MESSAGE 1; BASOPHILS % 0.3 % (0.0-2.0); EOSINOPHILS # 0.1 10^3/ul (0.0-0.5); EOSINOPHILS % 0.7 % (0.0-7.0); HEMATOCRIT 19.7 % (37.0-47.0); LYMPHOCYTES # 3.1 10^3/ul (0.8-2.9); LYMPHOCYTES % 19.2 % (15.0-51.0); MEAN CORPUSCULAR HEMOGLOBIN 29.1 pg (29.0-33.0); MEAN CORPUSCULAR HGB CONC 31.5 g/dl (32.0-37.0); MEAN CORPUSCULAR VOLUME 92.5 fl (82.0-101.0); MEAN PLATELET VOLUME 11.3 fl (7.4-10.4); MONOCYTE # 1.2 10^3/ul (0.3-0.9); MONOCYTES % 7.4 % (0.0-11.0); NEUTROPHIL # 11.4 10^3/ul (1.6-7.5); NEUTROPHILS % 71.5 % (39.0-77.0); NUCLEATED RED BLOOD CELLS% 0.2 /100WBC (0.0-0.0); PLATELET COUNT 148 10^3/UL (140-415); RED BLOOD COUNT 2.13 10^6/ul (4.20-5.40); RED CELL DISTRIBUTION WIDTH 13.8 % (11.5-14.5); WHITE BLOOD COUNT 15.9 10^3/ul (4.8-10.8)
[2017-03-19 08:58] LABS: POSITIVE DIFF @See below
[2017-03-19] MEDS ORDERED: DIPHTH/TET/ACEL PERTUSS (ADULT) 0.5 ML VIAL IM* ONE (09:00)
[2017-03-19 09:02] LABS: HEMOGLOBIN 6.2 g/dl (12.0-16.0)
[2017-03-19] MEDS: FERROUS SULFATE (EC) 325 MG TAB PO SCH (10:11)
--- NOTE | 2017-03-19 10:27 | DS ---
Date/Time of Note Date/Time of Note DATE: 03/19/17 TIME: 10:18 Obstetrical Discharge Record Final Diagnosis Final Diagnosis: Term delivered Vaginal Delivery Obstetrical Delivery: Spontaneous, Laceration, Repaired Complications Other (anemia- Pt is stable and asymptomatic.) Augmentation: Yes Induction: No Condition on Discharge Physical Assessment Last Vitals: T=98.0 BP 107/68 Voiding: Yes Bowel Movement: Yes Breast: Filling Fundus: Firm Episiotomy: Laceration intact. Calf Tenderness: No Patient Condition: Good CAROLIN ORCK MD Mar 19, 2017 10:27
--- NOTE | 2017-03-19 10:30 | PD.PPDC ---
[facility] [employer] Discharge Instruction Condition Patient Condition: Good Diet Diet: Resume Regular Diet Activity/Restrictions Activity: Normal Activity May Shower Restrictions: No Sexual Activity Nothing in the Vagina No [place] No Tampons, douche Follow-up Follow-up with Physician: 6, Week/Weeks Return to clinic for [facility] SPECIALIST Instructions: Fever greater than 101 Chills Worsening abdominal pain Excessive Vaginal Bleeding OB Instructions: Breast Tenderness Depression CAROLIN ROCK MD Mar 19, 2017 10:30
--- NOTE | 2017-03-21 14:45 | CONS ---
Date/Time of Note Date/Time of Note DATE: 03/21/17 TIME: 14:44 Consultation Date/Type/Reason Admit Date/Time Mar 17, 2017 at 01:00 Initial Consult Date 03/18/17 Type of Consultation: Anesthesiology Reason for Consultation follow up 24 HR Interval Summary Free Text/Dictation Pt seen and examined at bedside on 03/18/17 is POD#1 s/p . Pt received Epidural for post op labor pain relief and pain is currently controlled adequately. No N/V/D/BERRY/Numbness in extremities. Will follow. Constitutional: improved, no complaints Exam/Review of Systems Vital Signs Vitals Vital Signs Date Time Temp Pulse Resp B/P Pulse Ox O2 Delivery O2 Flow Rate FiO2 03/19/17 08:00 98.3 73 18 105/56 Room Air 03/17/17 21:00 97 Results Result Diagram: 03/19/17 0818 Results 24 hrs Laboratory Tests Test 03/20/17 14:53 Lab Scanned Report [facility]IL RESTREPO Mar 21, 2017 14:45
== END 2017-03-19 12:15 | disposition home or self-care (01) | DRG 775 ==
LOC: OBT 22:16 → L-D 22:17 → OBT 03-17 00:56 → L-D 03-17 01:00 → PP1 03-17 21:27
PROVIDERS: ADMIT Obstetrics & Gynecology Obstetrics; ATTEND Obstetrics & Gynecology Obstetrics
PROC: 10D07Z6 Extraction of Products of Conception, Vacuum, Via Natural or Artificial Opening (ICD-10-PCS; principal; 2017-03-17)
PROC: 0KQM0ZZ Repair Perineum Muscle, Open Approach (ICD-10-PCS; 2017-03-17)
DX: O77.0 Labor and delivery complicated by meconium in amniotic fluid (principal); O70.1 Second degree perineal laceration during delivery; Z3A.40 40 weeks gestation of pregnancy; Z37.0 Single live birth
CPT/HCPCS: 62319; 85025; 85610; 85730; 86592; 86900; 86901; 90715; 99464; G0463; J2590; J3010; J7120

== ENCOUNTER 2018-02-03 21:18 | Emergency (ER) | END 2018-02-03 22:42 | disposition home or self-care (01) ==

== ENCOUNTER 2018-12-24 14:05 | Emergency (ER) | payer OTHER ==
[~2018-12-24] VITALS: Ht 154.9 cm; Wt 48.9 kg
[~2018-12-24 14:05] MED LIST changes: +CALC600T5 PO; +CEPH-443 PO; +IBUP-1542 PO; +PREN1TAB79 PO
[2018-12-24 14:09] VITALS: Ht 154.9 cm; Wt 48.9 kg
[2018-12-24] MEDS ORDERED: CLIN300C10 PO (14:29)
--- NOTE | 2018-12-24 14:33 | ERD ---
ER Documentation Chief Complaint Chief Complaint c/o right posterior thigh abscess x2 days from "insect bite" HPI Patient is a 23-year-old female who presents with an area of redness and sw elling to her right posterior thigh that she thinks is from a bug bite. Is been going on for 2 days. She got pus out of it today and states that it has been draining. No fever. No nausea or vomiting. She is ambulatory. ROS All systems reviewed and are negative except as per history of present illness. Medications Home Meds Active Scripts Clindamycin Hcl* (Clindamycin Hcl*) 300 Mg Capsule, 300 MG PO Q8, #21 CAP Prov:JOHNNIE YBARRA PA-C 12/24/18 Ibuprofen* (Motrin*) 600 Mg Tab, 600 MG PO Q6, #30 TAB Prov:LEONCIO HERNANDEZ PA-C 02/03/18 Cephalexin* (Keflex*) 500 Mg Capsule, 500 MG PO QID for 7 Days, CAP Prov:LEONCIO HERNANDEZ PA-C 02/03/18 Reported Medications Calcium Carbonate (CALCIUM) 600 Mg Tablet, 600 MG PO DAILY, TAB 03/16/17 Vit W-Ca,Fe,FA(<1 mg) ( Vitamins) 1 Each Tablet, 1 EACH PO DAILY, TAB 03/16/17 Ferrous Sulfate* (Ferrous Sulfate*) 325 Mg Tabec, 325 MG PO DAILY, TAB 01/26/17 Allergies Allergies: Coded Allergies: No Known Allergy (Unverified , 03/16/17) PMhx/Soc History of Surgery: No Anesthesia Reaction: No Hx Neurological Disorder: No Hx Respiratory Disorders: No Hx Cardiac Disorders: No Hx Psychiatric Problems: No Hx Miscellaneous Medical Probl: No Hx Alcohol Use: Yes (OCCASIONAL) Hx Substance Use: No Hx Tobacco Use: No FmHx Family History: No diabetes Physical Exam Vitals Vital Signs Date Temp Pulse Resp B/P (MAP) Pulse Ox O2 O2 Flow FiO2 Time Delivery Rate 12/24/18 97.7 76 20 113/58 98 14:09 (76) Physical Exam Const: No acute distress Head: Atraumatic Eyes: Normal Conjunctiva ENT: Normal External Ears, Nose and Mouth. Neck: Full range of motion. No meningismus. Resp: Clear to auscultation bilaterally Cardio: Regular rate and rhythm, no murmurs Skin: Right posterior thigh has area erythema and slight induration and mild warmth approximately ,no bleeding or drainage Procedures/MDM Patient has abscess on posterior right thigh. Is already opened and draining, and this time does not seem to require any further incision and drainage. Patient counseled regarding my diagnostic impression and care plan. Prior to discharge all questions answered. Pt agrees with treatment plan and understands strict return precautions. Pt is instructed to follow up with primary care provider within 24-48 hours. Precautionary instructions provided including instructions to return to the ER if not improving or for any worsening or changing symptoms or concerns. Departure Diagnosis: Primary Impression: Abscess Condition: Stable Patient Instructions: Abscess, Antiobiotic Treatment Only Additional Instructions: Call your primary care doctor TOMORROW for an appointment during the next 1-2 days.See the doctor sooner or return here if your condition worsens before your appointment time. JOHNNIE YBARRA PA-C Dec 24, 2018 14:33 BRENDAN GARRIDO MD Dec 24, 2018 15:19
== END 2018-12-24 14:43 | disposition home or self-care (01) ==
LOC: FTE 14:05
DX: L02.415 Cutaneous abscess of right lower limb (principal)
CPT/HCPCS: 99283